=== PATIENT | male | born 1990 | race Caucasian/White ===

== ENCOUNTER 2017-12-25 14:02 | Emergency (ER) | payer SELFPAY, OTHER, MEDICAID ==
[2017-12-25] MEDS: LIDOCAINE 2% (MDV) 20 ML INJ INJ (16:14)
== END 2017-12-25 17:36 | disposition home or self-care (01) ==
LOC: FTE 14:02
DX: K12.2 Cellulitis and abscess of mouth (principal)
CPT/HCPCS: 42000; 99283-25